=== PATIENT | male | born 1995 | race Caucasian/White ===

== ENCOUNTER 2018-05-11 08:08 | Emergency (ER) | payer MEDICAID ==
[~2018-05-11] VITALS: Ht 177.8 cm; Wt 72.7 kg
[2018-05-11 08:19] VITALS: BP 102/67
[2018-05-11] MEDS ORDERED: ZOFRAN 4MG T4 MG/TAB PO (09:47)
[2018-05-11 10:01] VITALS: PULSE 86; TEMP 98.4
== END 2018-05-11 10:01 | disposition home or self-care (01) ==
LOC: COL.ER 08:08
DX: R19.7 Diarrhea, unspecified (principal); R11.10 Vomiting, unspecified; F17.210 Nicotine dependence, cigarettes, uncomplicated; Z88.0 Allergy status to penicillin